=== PATIENT | female | born 1980 | race Caucasian/White ===

== ENCOUNTER 2020-06-03 19:14 | Emergency (ER) | payer SELFPAY ==
[~2020-06-03] VITALS: Ht 162.6 cm; Wt 51.8 kg
[2020-06-03 19:18] VITALS: BP 134/78
== END 2020-06-03 19:52 | disposition home or self-care (01) ==
LOC: ED 19:14
DX: K04.7 Periapical abscess without sinus (principal); F17.210 Nicotine dependence, cigarettes, uncomplicated